=== PATIENT | female | born 1965 | race Caucasian/White ===

== ENCOUNTER 2017-01-19 11:39 | Emergency (ER) | payer OTHER ==
[2017-01-19 11:48] VITALS: O2SAT 98
[2017-01-19] MEDS ORDERED: Albuterol 0.083% Inhal Sol (2.5 mg/3 mL) UD IH STA (12:20)
[2017-01-19] MEDS ORDERED: Amoxicillin-Clav 875-125 mg Tab PO STA (12:21)
--- NOTE | 2017-01-19 12:22 | C.PDOC ---
History Of Present Illness A 51 year old female, with a past medical history of Asthma and seasonal allergies, presents to the emergency room for the evaluation of URI symptoms for 1 week. Patient notes associated nasal congestion, sore throat, and dry cough. Patient reports OTC use without any improvement. Patient also notes some facial pressure pain, productive cough with sputum, and some throat irritation. Patient otherwise denies high fever, chills, denies severe headache, dizziness, visual changes, vertigo, neck pain, drooling, dysphagia, dyspnea, CP, SOB, wheezing, palpitation, abdominal pain, nausea, vomiting, diarrhea, or any other complaints. Ambulate to ED for evaluation, not in any apparent distress. Time Seen by Provider: 01/19/17 11:54 Chief Complaint (Nursing): ENT Problem History Per: Patient History/Exam Limitations: None Onset/Duration Of Symptoms: Other (1 week) Current Symptoms Are (Timing): Still Present Severity: Mild Past Medical History Reviewed: Historical Data, Nursing Documentation, Vital Signs Vital Signs: Last Vital Signs Temp 98.1 F 01/19/17 11:46 Pulse 71 01/19/17 11:46 Resp 16 01/19/17 11:46 BP 104/69 01/19/17 11:46 Pulse Ox 98 01/19/17 12:38 Family History: States: No Known Family Hx - Social History Hx Alcohol Use: No Hx Substance Use: No - Immunization History Hx Tetanus Toxoid Vaccination: No Hx Influenza Vaccination: No Hx Pneumococcal Vaccination: No Review Of Systems Except As Marked, All Systems Reviewed And Found Negative. Constitutional: Negative for: Fever, Chills ENT: Positive for: Throat Pain (Sore throat; Throat irritation), Other (Facial pressure pain) Cardiovascular: Negative for: Chest Pain Respiratory: Positive for: Cough (Dry cough), Sputum (Productive cough with sputum). Negative for: Shortness of Breath Gastrointestinal: Negative for: Nausea, Vomiting, Abdominal Pain, Diarrhea Neurological: Negative for: Headache, Dizziness Physical Exam - Physical Exam Appears: Well, Non-toxic, No Acute Distress Skin: Normal Color, Warm, Dry, No Rash Eye(s): bilateral: PERRL Ear(s): Bilateral: Normal Nose: Discharge (scant clear rhinorrhea B/L with congestion), Other (emetaous nasal mucosa) Oral Mucosa: Moist, No Drooling, Other (mild tenderness frontal sinus area. NO edema, no erythema.) Tongue: Normal Appearing Lips: Normal Appearing Throat: Normal, No Erythema, No Exudate, No Drooling Neck: Normal, Normal ROM, Supple Cardiovascular: Rhythm Regular Respiratory: No Decreased Breath Sounds, No Accessory Muscle Use, No Stridor, No Wheezing Gastrointestinal/Abdominal: Normal Exam, Soft, No Tenderness, No Distention, No Guarding Extremity: Normal ROM, No Pedal Edema, No Deformity Neurological/Psych: Oriented x3, Normal Speech ED Course And Treatment O2 Sat by Pulse Oximetry: 98 Pulse Ox Interpretation: Normal - Radiology CXR: Interpreted by Me, Viewed By Me CXR Interpretation: Yes: No Acute Disease Progress Note: On re-evaluation, pt is afebrile, hemodynamicaly stable. Non- toxic. Ambulatory in ED with stable gait. PulseOx 98% RA. Neck: (-) meningeal sign. ENT: exam c/w fronal tenderness r/o sinusitis. Lungs: CTA B/L , BS equal B/L. ABd: Benign. CXR review and appears normal. Pt has clinical findings c/w sinusitis, hx of asthma. Pt advised. ref. to f/u with PMD in 2-3 days for re-eval. return ifa ny new changes. Disposition Counseled Patient/Family Regarding: Studies Performed, Diagnosis, Need For Followup, Rx Given - Disposition Referrals: Saranya Perez DO [IM] - Disposition: HOME/ ROUTINE Disposition Time: 13:13 Condition: STABLE Additional Instructions: Encourage fluids Take medication as prescribed Follow up with PMD in 2-3 days for re-evaluation. Return to ED if any worsening or new changes. Prescriptions: Albuterol HFA [Ventolin HFA 90 mcg/actuation (8 g)] 1 puff IH Q6 #1 inhaler Amoxicillin/Clavulanate [Augmentin 875 MG-125 MG] 1 tab PO BID #14 tab Benzonatate [Tessalon Perle] 100 mg PO TID #14 capsule Prednisone [Deltasone] 20 mg PO DAILY #3 tablet Instructions: Sinusitis (ED) - Clinical Impression Clinical Impression: Sinusitis - Scribe Statement The provider has reviewed the documentation as recorded by the Kylieibarchie Amador All medical record entries made by the Scribe were at my direction and personally dictated by me. I have reviewed the chart and agree that the record accurately reflects my personal performance of the history, physical exam, medical decision making, and the department course for this patient. I have also personally directed, reviewed, and agree with the discharge instructions and disposition.
[2017-01-19] MEDS ORDERED: Amoxicillin-Clav 875-125 mg Tab PO ONE (12:27)
[2017-01-19] MEDS ORDERED: Albuterol 0.083% Inhal Sol (2.5 mg/3 mL) UD ONE (12:36)
--- NOTE | 2017-01-19 14:02 | RAD ---
HISTORY: Cough COMPARISON: No prior. TECHNIQUE: Chest PA and lateral FINDINGS: LUNGS: Mild venous congestion. Bibasilar breast and nipple shadows. PLEURA: No significant pleural effusion identified. No pneumothorax apparent. CARDIOVASCULAR: Normal. OSSEOUS STRUCTURES: No significant abnormalities. VISUALIZED UPPER ABDOMEN: Normal. OTHER FINDINGS: None. IMPRESSION: Mild venous congestion. Bibasilar breast and nipple shadows.
[2017-01-19 14:04] VITALS: BP 97/64; PULSE 72; RESP 18; TEMP 98.8
== END 2017-01-19 14:09 | disposition home or self-care (01) ==
LOC: C.ER 11:39
DX: J32.9 Chronic sinusitis, unspecified (principal)

== ENCOUNTER 2017-01-22 11:00 | Emergency (ER) | payer OTHER ==
[2017-01-22 11:17] VITALS: O2SAT 99
[2017-01-22] MEDS ORDERED: Sodium Chloride 0.9% 1,000 ML IV ONE (11:38)
--- NOTE | 2017-01-22 11:39 | C.PDOC ---
History Of Present Illness 51 yr old female presents to the ER with complaints of right sided neck/jaw pain which started last night. Patient states she was seen in ED 3 days ago and was diagnosed with sinus infection and discharged with antibiotics. Patient states she has been compliant with the medicine. Patient also reports of blurred vision yesterday and cough. Patient denies fever, chest pain, SOB, nausea, vomiting, headache, weakness or numbness. Time Seen by Provider: 01/22/17 11:24 History Per: Patient History/Exam Limitations: None Onset/Duration Of Symptoms: Sudden Onset (Last night) Past Medical History Reviewed: Historical Data, Nursing Documentation, Vital Signs Vital Signs: Last Vital Signs Temp 98.4 F 01/22/17 13:28 Pulse 74 01/22/17 16:33 Resp 20 01/22/17 16:33 BP 110/74 01/22/17 16:33 Pulse Ox 99 01/22/17 16:22 Family History: States: No Known Family Hx - Social History Hx Alcohol Use: No Hx Substance Use: No - Immunization History Hx Tetanus Toxoid Vaccination: No Hx Influenza Vaccination: No Hx Pneumococcal Vaccination: No Review Of Systems Except As Marked, All Systems Reviewed And Found Negative. Constitutional: Negative for: Fever Cardiovascular: Negative for: Chest Pain Respiratory: Positive for: Cough. Negative for: Shortness of Breath Gastrointestinal: Negative for: Nausea, Vomiting Musculoskeletal: Positive for: Neck Pain (Right sided neck/jaw pain ) Neurological: Negative for: Weakness, Numbness, Headache Physical Exam - Physical Exam Appears: Well, Non-toxic, No Acute Distress Skin: Warm, Dry, No Rash Head: Atraumatic, Normacephalic Oral Mucosa: Moist, No Trismus Throat: Erythema (Mild erythema), No Exudate, Other Lymphatic: Other (tender anterior lymph nodes to the right side ) Chest: Symmetrical, No Tenderness Cardiovascular: Rhythm Regular, No Murmur Respiratory: Normal Breath Sounds, No Rales, No Rhonchi, No Stridor, No Wheezing Extremity: Normal ROM, No Swelling Neurological/Psych: Oriented x3, Normal Speech, Normal Motor ED Course And Treatment - Laboratory Results Result Diagrams: 01/22/17 12:02 01/22/17 12:02 O2 Sat by Pulse Oximetry: 99 - Other Rad X-Ray - Neck X-Ray: Viewed By Me, Read By Radiologist Interpretation: PROCEDURE: Radiographs of the neck (soft tissue). HISTORY: sore throat ant neck pain. COMPARISON: None. TECHNIQUE: Frontal and Lateral Radiographs of the neck, optimized for soft tissue visualization. FINDINGS: SOFT TISSUES: Unremarkable. No radiopaque foreign body seen. CERVICAL SPINE: Minimal C5-6 anterior cervical spondylosis. Straightening of the normal cervical lordosis. OTHER FINDINGS: None. IMPRESSION: Unremarkable radiographs of the soft tissues of the neck. - CT Scan/US CT - Neck Other Rad Studies (CT/US): Read By Radiologist, Radiology Report Reviewed CT/US Interpretation: PROCEDURE: CT NECK WITH CONTRAST. HISTORY: neck pain r /o abscess. COMPARISON: No prior similar study available for comparison. TECHNIQUE: CT of the neck with intravenous contrast. Coronal and sagittal reformats generated. Intravenous contrast dose: 95 mL Visipaque 320. Radiation dose: DLP 326.5 mGy-cm. This CT exam was performed using one or more of the following dose reduction techniques: Automated exposure control, adjustment of the mA and/or kV according to patient size, and/or use of iterative reconstruction technique. FINDINGS: NASOPHARYNX: Unremarkable. SUPRAHYOID NECK: Unremarkable oropharynx, oral cavity, parapharyngeal space and retropharyngeal space. INFRAHYOID NECK: Unremarkable larynx, hypopharynx, and supraglottic space. Vocal cords intact. MASS: None. GLANDS: Parotid and submandibular glands unremarkable. Normal size thyroid gland, without nodule. LYMPH NODES: Normal. No lymphadenopathy. CERVICAL SPINE: No fracture or focal lesion. VASCULAR STRUCTURES: Unremarkable. OTHER FINDINGS: Mild-to- moderate maxillary sinus mucosal thickening. IMPRESSION: No CT evidence of abscess formation in the neck. No evidence of mass lesion or significant lymphadenopathy. [id number] maxillary sinus mucosal thickening. Medical Decision Making Medical Decision Making: the pt continued to c/o pain in the right side of her neck worse w movement so a CT was done to r/o abscess. Disposition - Disposition Referrals: [facility] [Outside] Disposition: HOME/ ROUTINE Disposition Time: 16:22 Condition: GOOD Additional Instructions: Please follow up with your doctor on Thursday. Return to the ER for any worsening symptoms or for any other concerns. Instructions: Pharyngitis (ED) - Clinical Impression Clinical Impression: Sore throat, Neck pain - Scribe Statement The provider has reviewed the documentation as recorded by the Scribe Chantale Vannessa Provider Attestation: All medical record entries made by the Blas were at my direction and personally dictated by me. I have reviewed the chart and agree that the record accurately reflects my personal performance of the history, physical exam, medical decision making, and the department course for this patient. I have also personally directed, reviewed, and agree with the discharge instructions and disposition.
[2017-01-22 12:28] LABS: BASO % 0.5 % (0.0-2.0); EOS % 0.3 % (0.0-4.0); HEMATOCRIT 39.5 % (34.0-47.0); LYMPH # 1.1 K/uL (1.0-4.3); LYMPH % 12.6 % (20.0-40.0); MEAN CELL VOLUME 90.9 fL (81.0-99.0); MEAN CORPUSCULAR HEMOGLOBIN 30.1 pg (27.0-31.0); MEAN CORPUSCULAR HGB CONC 33.1 g/dL (33.0-37.0); MEAN PLATELET VOLUME 7.8 fL (7.2-11.7); MONO # 0.4 K/uL (0.0-0.8); MONO % 4.4 % (0.0-10.0); NRBC % 0.1 % (0.0-2.0); RED CELL DISTRIBUTION WIDTH 12.1 % (11.5-14.5); WHITE BLOOD COUNT 8.4 K/uL (4.8-10.8)
[2017-01-22 12:32] LABS: CHLORIDE 89 mmol/L (98-107)
[2017-01-22 12:33] LABS: POTASSIUM 3.7 mmol/L (3.6-5.2); SODIUM 140 mmol/L (132-148)
--- NOTE | 2017-01-22 12:34 | RAD ---
PROCEDURE: Radiographs of the neck (soft tissue). HISTORY: sore throat ant neck pain COMPARISON: None. TECHNIQUE: Frontal and Lateral Radiographs of the neck, optimized for soft tissue visualization. FINDINGS: SOFT TISSUES: Unremarkable. No radiopaque foreign body seen. CERVICAL SPINE: Minimal C5-6 anterior cervical spondylosis. Straightening of the normal cervical lordosis OTHER FINDINGS: None. IMPRESSION: Unremarkable radiographs of the soft tissues of the neck.
[2017-01-22 12:35] LABS: ALB/GLOB RATIO 1.2 (1.0-2.1); ALKALINE PHOSPHATASE 99 U/L (38-126); ALT/SGPT 43 U/L (9-52); AST/SGOT 36 U/L (14-36); BILIRUBIN,TOTAL 0.5 mg/dL (0.2-1.3); BLOOD UREA NITROGEN 11 mg/dL (7-17); CARBON DIOXIDE 29 mmol/L (22-30); GFR AFRICAN-AMERICAN > 60; TOTAL PROTEIN 8.1 g/dL (6.3-8.3)
[2017-01-22 12:36] LABS: CALCIUM 9.2 mg/dl (8.6-10.4); GLUCOSE,RANDOM 103 mg/dL (65-105)
[2017-01-22] MEDS ORDERED: Iodixanol 320 mg/ml 150 ml Bottle IV ONE (13:55)
[2017-01-22 14:09] VITALS: TEMP 98.4
--- NOTE | 2017-01-22 16:08 | CT ---
PROCEDURE: CT NECK WITH CONTRAST HISTORY: neck pain r/o abscess COMPARISON: No prior similar study available for comparison. TECHNIQUE: CT of the neck with intravenous contrast. Coronal and sagittal reformats generated. Intravenous contrast dose: 95 mL Visipaque 320 Radiation dose: DLP 326.5 mGy-cm This CT exam was performed using one or more of the following dose reduction techniques: Automated exposure control, adjustment of the mA and/or kV according to patient size, and/or use of iterative reconstruction technique. FINDINGS: NASOPHARYNX: Unremarkable. SUPRAHYOID NECK: Unremarkable oropharynx, oral cavity, parapharyngeal space and retropharyngeal space. INFRAHYOID NECK: Unremarkable larynx, hypopharynx, and supraglottic space. Vocal cords intact. MASS: None. GLANDS: Parotid and submandibular glands unremarkable. Normal size thyroid gland, without nodule. LYMPH NODES: Normal. No lymphadenopathy. CERVICAL SPINE: No fracture or focal lesion. VASCULAR STRUCTURES: Unremarkable. OTHER FINDINGS: [id number] maxillary sinus mucosal thickening IMPRESSION: No CT evidence of abscess formation in the neck. No evidence of mass lesion or significant lymphadenopathy. [id number] maxillary sinus mucosal thickening.
[2017-01-22 16:34] VITALS: BP 110/74; PULSE 74; RESP 20
== END 2017-01-22 16:33 | disposition home or self-care (01) ==
LOC: C.ER 11:00
DX: J02.9 Acute pharyngitis, unspecified (principal); M54.2 Cervicalgia
CPT/HCPCS: 36415; 70360; 70491; 80053; 85025; 96374; 99283; J1885; J7040; Q9965